=== PATIENT | female | born 1995 | race Caucasian/White ===

== ENCOUNTER 2016-11-18 13:08 | Emergency (ER) | payer OTHER ==
[2016-11-18 13:31] LABS: BILIRUBIN,URINE NEGATIVE (NEGATIVE)
--- NOTE | 2016-11-18 13:31 | ED Physician Documentation ---
PD HPI ABD PAIN - Stated complaint Stated Complaint: RT SIDE PX - Chief complaint Chief Complaint: Abd Pain - History obtained from History obtained from: Patient, Family - History of Present Illness Timing - onset: Today Timing - duration: Hours (5) Timing - details: Gradual onset Pain level max: 5 Pain level now: 5 Quality: Aching, Pain Location: Other (R pelvic) Radiation: Other (non-radiating) Improved by: Laying still Worsened by: Moving, Palpation Associated symptoms: Vaginal bleeding (started menses today). No: Fever, Nausea , Vomiting, Hematemesis, Diarrhea, Constipation, Melena, Hematochezia, Dysuria, Hematuria, Chest pain, Dizzy Similar symptoms before: Has not had sx before Recently seen: Not recently seen - Additional information Additional information: did take a long ride in the car yesterday. States pain flares when she moves the R leg. Review of Systems Constitutional: denies: Fever, Chills Respiratory: denies: Cough GI: denies: Nausea, Vomiting, Diarrhea : reports: Vaginal bleeding (menses). 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 - Present Medications Home Medications: Ambulatory Orders Medication Instructions Recorded Confirmed No Known Home Medications [No 11/18/16 11/18/16 Known Home Medications] - Allergies Allergies/Adverse Reactions: Allergies Allergy/AdvReac Type Severity Reaction Status Date / Time No Known Drug Allergies Allergy Verified 11/18/16 13:15 - Social History Does the pt smoke?: No Smoking Status: Never smoker Does the pt drink ETOH?: No Does the pt have substance abuse?: No - Immunizations Immunizations are current?: Yes PD ED PE NORMAL - Vitals Vital signs reviewed: Yes - General General: Alert and oriented X 3, No acute distress - HEENT HEENT: Moist mucous membranes - Neck Neck: Supple, no meningeal sign - Cardiac Cardiac: RRR, Strong equal pulses - Respiratory Respiratory: No respiratory distress, Clear bilaterally - Abdomen Abdomen: Soft, Non distended, Other (TTP R low pelvic) - Female Female : Pt declined - Back Back: No CVA TTP, No spinal TTP - Derm Derm: Warm and dry - Neuro Neuro: Alert and oriented X 3 - Psych Psych: Normal mood, Normal affect Results - Vitals Vitals: Vital Signs - 24 hr 11/18/16 11/18/16 13:11 15:32 Temperature 36.6 C Heart Rate 87 87 Respiratory 16 16 Rate Blood Pressure 114/77 106/65 O2 Saturation 100 100 Oxygen O2 Source Room air - Labs Labs: Laboratory Tests 11/18/16 13:20 Urine Color YELLOW Urine Clarity CLEAR Urine pH 6.0 Ur Specific [place] >=1.030 H Urine Protein NEGATIVE Urine Glucose (UA) NEGATIVE Urine Ketones NEGATIVE Urine Occult Blood LARGE H Urine Nitrite NEGATIVE Urine Bilirubin NEGATIVE Urine Urobilinogen 0.2 (NORMAL) Ur Leukocyte Esterase NEGATIVE Urine RBC TNTC H Urine WBC 0-3 Ur Squamous Epith Cells MANY Squamous H Urine Bacteria None Seen Urine Mucus Marked Strands Ur Microscopic Review INDICATED Urine Culture Comments NOT INDICATED Urine HCG, Qual NEGATIVE - Rads (name of study) pelvic US Radiology: Prelim report reviewed, EMP read contemporaneously, See rad report ( Ovaries are normal in size. Small free fluid in pelvis. ) PD MEDICAL DECISION MAKING - ED course Complexity details: reviewed results, re-evaluated patient, considered differential, d/w patient, d/w family ED course: Patient is a 21-year-old female who presents to the emergency department with right-sided pelvic pain. This is in the area of the right hip flexor. Pain is worse with movement of the right leg, especially full flexion with external rotation. Feels a tugging and pulling sensation. She has no tenderness at McBurney's point or over the abdomen. Does have some mild pelvic tenderness, but mostly over the hip flexor area. No evidence of infection. No acute findings on ultrasound. We will trial her on Motrin for home and follow-up closely with her doctor. She will return if she worsens or is not improving in the next 2 days. Appendicitis precautions were also given as this could be an atypical appendicitis, early stages. Patient and family counseled regarding signs and symptoms for which I believe and urgent re-evaluation would be necessary. Patient with good understanding of and agreement to plan and is comfortable going home at this time This document was made in part using voice recognition software. While efforts are made to proofread this document, sound alike and grammatical errors may occur. Patient declines a pelvic examination at this time, would consider if she fails to improve Departure - Departure Disposition: 01 Home, Self Care Clinical Impression: Pelvic pain Condition: Good Instructions: ED Abdominal Pain Appendx Poss, ED Abdominal Pain Unkn Cause Follow-Up: your,doctor within 2 days if not better [Other] Comments: You can try Motrin or Tylenol at home for pain. Return if you worsen. The cause of your symptoms is unclear today and should be improving in the next 24 hours, if you fail to improve or worsen prior to that time, return for evaluation. Discharge Date/Time: 11/18/16 15:33
[2016-11-18 13:35] LABS: HCG UR QUAL NEGATIVE; UA w/ MICROSCOPIC CHARGE YES
[2016-11-18 13:50] LABS: UR CULTURE IF IND NOT INDICATED; WBC,URINE 0-3 /HPF (0-5)
--- NOTE | 2016-11-18 15:03 | Ultrasound Preliminary Report ---
Exam: US Pelvic Non OB w/Doppler IMPRESSION: Ovaries are normal in size. Small free fluid in pelvis. [facility] SITE ID: [id number]
--- NOTE | 2016-11-18 15:06 | Ultrasound Report ---
REVISED: THIS REPORT WAS ORIGINALLY SIGNED ON 11/18/16 @ 1506. ORDERS LINKED ON 11/21/2016. EXAM: PELVIC ULTRASOUND EXAM DATE: 11/18/2016 02:23 PM. CLINICAL HISTORY: R pelvic pain. COMPARISON: None. TECHNIQUE: Realtime transabdominal pelvic scan performed to identify the uterus and adnexa and as an overview of other pelvic structures, followed by transvaginal scan to provide greater detail of the uterus and adnexa, with static image documentation. FINDINGS: Uterus: 9.3 x 3.6 x 4.7 cm, volume 82 cc. Anteverted position. Difficult to visualize well. Masses: None. Endometrium: 6 mm. Normal. Cervix: Unremarkable. Right Ovary: 3.4 x 2.3 x 2.2 cm, volume 8.8 cc. Normal echotexture and blood flow. Left Ovary: 3.5 x 1.6 x 2.3 cm, volume 6.9 cc. Not well seen. Free Fluid: Small Other: None. IMPRESSION: Ovaries are normal in size. Small free fluid in pelvis. [facility] Referring Provider Line: [phone] SITE ID: [id number]
[2016-11-18 15:32] VITALS: BP 106/65
== END 2016-11-18 15:33 | disposition home or self-care (01) ==
LOC: ED 13:08
DX: R10.2 Pelvic and perineal pain (principal)
CPT/HCPCS: 76830; 76856; 81001; 81003; 81025; 87086; 93975; 99283

== ENCOUNTER 2018-03-12 12:10 | Outpatient (CLI) | payer OTHER | END 2018-03-12 23:59 | disposition home or self-care (01) | LOC: RT.N 12:10 | PROVIDERS: ATTEND Physician Assistant Medical | DX: R00.0 Tachycardia, unspecified (principal); Z82.49 Family history of ischemic heart disease and other diseases of the circulatory system | CPT/HCPCS: 93005 ==

== ENCOUNTER 2019-04-15 15:24 | Emergency (ER) | payer OTHER ==
[2019-04-15 15:48] LABS: HCG UR QUAL NEGATIVE
--- NOTE | 2019-04-15 16:02 | ED Physician Documentation ---
PD HPI FEMALE - Stated complaint Stated Complaint: F - Chief complaint Chief Complaint: UTI - History obtained from History obtained from: Patient - History of Present Illness Timing - onset: How many days ago (3-4) Timing - duration: Days (3-4) Timing - details: Gradual onset, Waxing and waning Associated symptoms: Dysuria, Urinary frequency, Hematuria (today). 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 - Present Medications Home Medications: Ambulatory Orders Medication Instructions Recorded Confirmed Phenazopyridine HCl [Pyridium] 100 mg PO TID PRN #15 tablet 04/15/19 Sulfamethox/Trimeth 800/160 1 each PO BID #10 tablet 04/15/19 [Bactrim Ds 800/160] - Allergies Allergies/Adverse Reactions: Allergies Allergy/AdvReac Type Severity Reaction Status Date / Time No Known Drug Allergies Allergy Verified 11/18/16 13:15 - Social History Does the pt smoke?: No Smoking Status: Never smoker Does the pt drink ETOH?: No Does the pt have substance abuse?: No - Immunizations Immunizations are current?: Yes PD ED PE NORMAL - Vitals Vital signs reviewed: Yes - General General: Alert and oriented X 3, No acute distress, Well developed/nourished - Abdomen Abdomen: Soft, Non tender - Female Female : Deferred - Back Back: No CVA TTP - Derm Derm: Normal color, Warm and dry Results - Vitals Vitals: Vital Signs - 24 hr 04/15/19 04/15/19 15:32 16:32 Temperature 36.4 C L 36.6 C Heart Rate 86 81 Respiratory 16 16 Rate Blood Pressure 115/77 110/57 L O2 Saturation 99 99 Oxygen O2 Source Room air - Labs Labs: Laboratory Tests 04/15/19 04/15/19 15:32 15:32 Urine Color YELLOW Urine Clarity CLEAR Urine pH 6.0 Ur Specific [place] <=1.005 <=1.005 Urine Protein TRACE Urine Glucose (UA) NEGATIVE Urine Ketones NEGATIVE Urine Occult Blood LARGE H Urine Nitrite NEGATIVE Urine Bilirubin NEGATIVE Urine Urobilinogen 0.2 (NORMAL) Ur Leukocyte Esterase MODERATE H Urine RBC 0-5 Urine WBC >25 H Urine WBC Clumps PRESENT Ur Squamous Epith Cells NONE SEEN Urine Bacteria None Seen Ur Microscopic Review INDICATED Urine Culture Comments INDICATED Urine HCG, Qual NEGATIVE PD MEDICAL DECISION MAKING - ED course Complexity details: considered differential, d/w patient Departure - Departure Disposition: Home, Self Care Clinical Impression: Dysuria Urinary tract infection Qualifiers: Urinary tract infection type: acute cystitis Hematuria presence: with hematuria Qualified Code(s): N30.01 - Acute cystitis with hematuria Condition: Stable Record reviewed to determine appropriate education?: Yes Instructions: ED UTI Cystitis Female Follow-Up: Kenneth Fontenot PA-C [Primary Care Provider] - Prescriptions: Phenazopyridine HCl [Pyridium] 100 mg PO TID PRN #15 tablet PRN Reason: Abdominal Pain Sulfamethox/Trimeth 800/160 [Bactrim Ds 800/160] 1 each PO BID #10 tablet Comments: Stay well-hydrated. You can use an anti-inflammatory such as ibuprofen or naproxen twice daily. Also phenazopyridine to help with some of the urinary discomfort. This second medicine will to new urine a little orange-colored so not to worry. A little bit of bleeding is common with bladder infections. This should improve as the infection clears. Bactrim antibiotic twice daily for 5 days for the bladder infection. Recheck if not improved well over the next few days and return sooner if worsening such as increased discomfort, fevers, vomiting, back pain. Discharge Date/Time: 04/15/19 16:37
[2019-04-15] MEDS ORDERED: SULFAMETH/TRIMETH DS 800/160 MG TABLET PO STA (16:12)
[2019-04-15] MEDS ORDERED: IBUPROFEN 400 MG TABLET PO STA (16:12)
[2019-04-15] MEDS ORDERED: PHENAZOPYRIDINE 100 MG TABLET PO STA (16:12)
[2019-04-15 16:34] VITALS: BP 110/57
[2019-04-15 16:49] LABS: BILIRUBIN,URINE NEGATIVE (NEGATIVE); GLUCOSE, URINE (UA) NEGATIVE (NEGATIVE); KETONES,URINE (UA) NEGATIVE (NEGATIVE); LEUKOCYTE ESTERASE, URINE MODERATE (NEGATIVE); NITRITE,URINE NEGATIVE (NEGATIVE); OCCULT BLOOD,URINE LARGE (NEGATIVE); PROTEIN,URINE TRACE mg/dL (NEGATIVE); UROBILINOGEN,URINE 0.2 (NORMAL) E.U./dL (NORMAL)
[2019-04-15 16:54] LABS: CLARITY,URINE CLEAR (CLEAR)
[2019-04-15 17:02] LABS: BACTERIA,URINE None Seen /HPF (None Seen); RBC,URINE 0-5 /HPF (0-5); SQUAMOUS EPITHELIAL CELL,UR NONE SEEN (<= Few); WBC CLUMPS,URINE PRESENT
== END 2019-04-15 16:37 | disposition home or self-care (01) ==
LOC: ED 15:24
DX: N30.01 Acute cystitis with hematuria (principal)
CPT/HCPCS: 81001; 81025; 87086; 87181; 99283; A9270; 81003